=== PATIENT | female | born 1955 | race Caucasian/White ===

== ENCOUNTER 2018-11-06 14:56 | Inpatient (IN) | payer OTHER ==
[~2018-11-06] VITALS: Ht 160 cm; Wt 78.8 kg
[2018-11-06] MEDS ORDERED: normal saline 1000ML IV soln IVB ONE ×2 (15:00→16:35)
[2018-11-06] MEDS ORDERED: OXYB5TAB11 PO (15:16)
[2018-11-06] MEDS ORDERED: ENAL5TAB PO (15:17)
[2018-11-06] MEDS ORDERED: FURO-149 PO (15:19)
[2018-11-06] MEDS ORDERED: ZAR2.5T PO (15:20)
[2018-11-06] MEDS ORDERED: APIX5TAB3 PO (15:22)
[2018-11-06] MEDS ORDERED: OMEP20CA10 PO (15:22)
[2018-11-06 15:24] LABS: BASOPHILS # (AUTO) 0.1 X10'3 (0-0.2); BASOPHILS % (AUTO) 0.8 % (0-1); EOSINOPHILS % (AUTO) 0 % (0-6); HEMATOCRIT 37.6 % (35.0-45.0); HEMOGLOBIN 13.1 g/dl (12.0-16.0); LYMPHOCYTES # (AUTO) 0.8 X10'3 (1.1-4.8); MEAN CORPUSCULAR HEMOGLOBIN 31.3 PG (27.0-31.0); MEAN CORPUSCULAR HGB CONC 34.9 g/dL (33.0-36.5); MEAN CORPUSCULAR VOLUME 89.7 FL (78-98); MEAN PLATELET VOLUME 8.9 FL (7.4-10.4); MONOCYTES # (AUTO) 0.7 X10'3 (0-0.9); MONOCYTES % (AUTO) 8.7 % (2-12); NEUTROPHILS # (AUTO) 6.3 X10'3 (1.8-7.7); NEUTROPHILS % (AUTO) 80.5 % (42-75); PLATELET COUNT 115 X10'3 (140-440); RED BLOOD COUNT 4.19 X10'6 (4.20-5.60); RED CELL DISTRIBUTION WIDTH 13.7 % (11.5-14.5); WHITE BLOOD COUNT 7.8 X10'3 (4.5-11.0)
[2018-11-06] MEDS ORDERED: DIGO125T PO (15:25)
[2018-11-06] MEDS ORDERED: CARSR60C PO (15:26)
[2018-11-06 15:50] LABS: ALANINE AMINOTRANSFERASE 38 U/L (12-78); ALBUMIN 3.1 G/DL (3.4-5.0); ALKALINE PHOSPHATASE 94 IU/L (46-116); ANION GAP 13 (8-16); ASPARTATE AMINO TRANSFERASE 24 U/L (10-37); BILIRUBIN,TOTAL 0.6 MG/DL (0.1-1.0); BLOOD UREA NITROGEN 86 MG/DL (7-18); BUN/CREATININE RATIO 17.3 (6.6-38.0); CALCIUM 9.3 MG/DL (8.5-10.1); CHLORIDE 94 MMOL/L (99-107); CREATININE 4.97 MG/DL (0.40-0.90); GLUCOSE 192 MG/DL (70-104); SODIUM 134 MMOL/L (135-145); TOTAL CARBON DIOXIDE 27.5 MMOL/L (24-32); TOTAL PROTEIN 6.3 G/DL (6.4-8.2); eGFR 9 ML/MIN
[2018-11-06 15:54] LABS: POTASSIUM 2.6 MMOL/L (3.5-5.1)
--- NOTE | 2018-11-06 16:01 | NUR ---
ICE CHIPS/WATER OK PER
[2018-11-06] MEDS ORDERED: DIGOXIN IMMUNE FAB IV ONE (16:20)
[2018-11-06] MEDS ORDERED: NORMAL SALINE IV ONE (16:20)
[2018-11-06] MEDS: potassium 10mEq/100ml NS w/LIDOcaine (10mg/bag) IV SCH ×2 (16:21→17:38)
[2018-11-06] MEDS ORDERED: IBUP-24 PO (16:39)
[2018-11-06] MEDS ORDERED: UMEC62.5 INH (16:39)
--- NOTE | 2018-11-06 16:43 | NUR ---
CALL TO PHARMACY AT THIS TIME TO OBTAIN DIGIFAB (SEE EMAR), PER PHARMACY MEDICATION IS NOT IN STOCK AND CURRENTLY TRYING TO OBTAIN IT. KEELY MARTINEZ MADE AWARE.
[2018-11-06] MEDS ORDERED: sodium phosphate inj. 15 MMOL in dextrose 5%-water 150 ML IV PRN (16:50)
[2018-11-06] MEDS ORDERED: sodium phosphate inj. 30 MMOL in dextrose 5%-water 250 ML IV PRN (16:50)
[2018-11-06] MEDS ORDERED: morphine 2 MG/ML inj. syringe IV PRN (16:50)
[2018-11-06] MEDS ORDERED: magnesium 4gm in 100ml NS 100 ML IV PRN (16:50)
[2018-11-06] MEDS ORDERED: ipratropium/albuterol 3ml nebule NEB PRN (16:50)
[2018-11-06] MEDS ORDERED: magnesium Cl slow-release 64mg tablet PO PRN (16:50)
[2018-11-06] MEDS ORDERED: magnesium 2GM in 50ml NS 50 ML IV PRN (16:50)
[2018-11-06] MEDS ORDERED: ondansetron/PF 4mg/2ml inj IV PRN (16:50)
[2018-11-06] MEDS ORDERED: morphine 4 MG/ML inj SYRINge IV PRN (16:50)
[2018-11-06] MEDS ORDERED: bisacodyl 10mg suppository rectal RC PRN (16:50)
[2018-11-06] MEDS ORDERED: Neutra Phos packet PO PRN (16:50)
[2018-11-06] MEDS ORDERED: acetaminophen 325mg tablet PO PRN (16:50)
--- NOTE | 2018-11-06 17:22 | NUR ---
Incruse Ellipta sent to pharmacy for inpatient use. Rx form filled out, white copy placed in chart.
--- NOTE | 2018-11-06 17:30 | NUR ---
PER PHARMACY MEDICATION NOT AT [facility]. PHARMACY WILL HAVE BIOPHYSICS PROFESSOR GO TO [facility] TO SUPERINTENDENT COLLIERY MEDICATION AND BRING BACK TO [facility].
--- NOTE | 2018-11-06 18:25 | NUR ---
UA order by Dr. Reyna not necessary to collect if pt unable.
[2018-11-06] MEDS: normal saline 1000ml 1,000 ML IV SCH (19:14)
--- NOTE | 2018-11-06 19:20 | NUR ---
DIGIFAB STARTED, CURRENT HR 43. DENIES ANY CP. REPORTS ABD PAIN OF 9 OUT OF 10 THAT IS CHRONIC AND HAS BEEN "GOING ON FOR A MONTH AND A WEEK SO FAR".
--- NOTE | 2018-11-06 19:59 | NUR ---
STRAIGHT CATHED FOR UA,PT TOLERATED WELL. PT'S AT BEDSIDE. HR REMAINS 42 AND SINUS UMESH. DIGIFAB INFUSION COMPLETED. 2 LITER NS BOLUS' COMPLETED. MIVF NS AT 125.
[2018-11-06] MEDS: apixaban 5mg tablet PO SCH (20:06)
[2018-11-06 20:35] LABS: URINE AMPHETAMINE SCREEN NEGATIVE (Neg); URINE BARBITUATE SCREEN NEGATIVE (Neg); URINE BENZODIAZEPINES SCREEN NEGATIVE (Neg); URINE CANNABINOID SCREEN NEGATIVE (Neg); URINE COCAINE SCREEN NEGATIVE (Neg); URINE METHADONE SCREEN NEGATIVE (Neg); URINE OPIATE SCREEN NEGATIVE (Neg); URINE PHENCYCLIDINE SCREEN NEGATIVE (Neg)
--- NOTE | 2018-11-06 23:55 | NUR ---
pt sleeping, no new c/o
[2018-11-07] VITALS (17 sets, daily range): BP systolic 80–123; BP diastolic 37–67
[2018-11-07] MEDS: normal saline 1000ml 1,000 ML IV SCH ×3 (01:13→18:12)
[2018-11-07 03:20] LABS: BASOPHILS % (AUTO) 0.3 % (0-1); EOSINOPHILS % (AUTO) 0.1 % (0-6); HEMATOCRIT 32.5 % (35.0-45.0); HEMOGLOBIN 11.2 g/dl (12.0-16.0); LYMPHOCYTES # (AUTO) 0.7 X10'3 (1.1-4.8); LYMPHOCYTES % (AUTO) 8.2 % (21-51); MEAN CORPUSCULAR HEMOGLOBIN 31.2 PG (27.0-31.0); MEAN CORPUSCULAR HGB CONC 34.3 g/dL (33.0-36.5); MEAN CORPUSCULAR VOLUME 90.8 FL (78-98); MEAN PLATELET VOLUME 8.9 FL (7.4-10.4); MONOCYTES # (AUTO) 0.7 X10'3 (0-0.9); MONOCYTES % (AUTO) 7.9 % (2-12); NEUTROPHILS # (AUTO) 7.4 X10'3 (1.8-7.7); NEUTROPHILS % (AUTO) 83.5 % (42-75); PLATELET COUNT 89 X10'3 (140-440); RED BLOOD COUNT 3.58 X10'6 (4.20-5.60); RED CELL DISTRIBUTION WIDTH 13.2 % (11.5-14.5); WHITE BLOOD COUNT 8.8 X10'3 (4.5-11.0)
[2018-11-07 03:27] LABS: ALBUMIN 2.6 G/DL (3.4-5.0); ANION GAP 11 (8-16); BLOOD UREA NITROGEN 77 MG/DL (7-18); BUN/CREATININE RATIO 20.4 (6.6-38.0); CHLORIDE 102 MMOL/L (99-107); CREATININE 3.77 MG/DL (0.40-0.90); GLUCOSE 139 MG/DL (70-104); MAGNESIUM 2.1 MG/DL (1.5-2.4); PHOSPHORUS 3.3 MG/DL (2.3-4.5); SODIUM 139 MMOL/L (135-145); TOTAL CARBON DIOXIDE 26.4 MMOL/L (24-32); eGFR 12 ML/MIN
[2018-11-07 03:30] LABS: POTASSIUM 2.3 MMOL/L (3.5-5.1)
[2018-11-07] MEDS ORDERED: potassium Cl 20 mEq SR tablet PO STA (03:33)
[2018-11-07] MEDS: potassium Cl 20 mEq SR tablet PO PRN ×5 (03:48→21:18)
[2018-11-07] MEDS: potassium 10mEq/100ml NS w/LIDOcaine (10mg/bag) IV SCH ×2 (03:54→05:07)
--- NOTE | 2018-11-07 04:01 | NUR ---
lab results show k+ of 2.3, dr parry and braxton swan notified, orders for po and iv k+ given
[2018-11-07] MEDS ORDERED: normal saline 1000ML IV soln IVB ONE (04:25)
--- NOTE | 2018-11-07 05:18 | NUR ---
pt has consistently low bp, md informed, pt has no symptoms associated with hypotension, 500 ml ns bolus initiated
--- NOTE | 2018-11-07 05:50 | NUR ---
bolus completed, bp taken manually, pt still exhibiting non-symptomatic hypotension, md informed, traveling clerk called
--- NOTE | 2018-11-07 05:55 | NUR ---
director business systems contacted, orders to keep map above [address], pt to be transferred to icu after shift change
--- NOTE | 2018-11-07 07:55 | NUR ---
07- Received report from Leila Lockhart- Pt arrived. BP on R 71/46 L 80/40 HR ranges from 38-45. Currently in afib. Pt states she was started on eliquis 7 weeks ago for afib. She has been having dizziness, weakness, throwing up meds, and diarrhea
[2018-11-07] MEDS: apixaban 5mg tablet PO SCH ×2 (07:58→21:18)
[2018-11-07] MEDS: pantoprazole 40mg Tablet.DR PO SCH (07:59)
[2018-11-07] MEDS ORDERED: non-formulary drug (Umeclidinium Bromide (Incruse Ellipta) 1 PUFF) INH SCH (08:00)
[2018-11-07] MEDS: INCRUSE ELLIPTA 62.5 MCG IH SCH (08:00)
[2018-11-07] MEDS: DOBUTamine-DoBUTrex 500mg/D5W 250 ML IV SCH (09:32)
--- NOTE | 2018-11-07 10:02 | NUR ---
0845 - Dr Contreras here. To start dobutamine at 5mcg (no titrate), Ok to eat if able. Nrs added a dig level to am lab draw this am. Dig level at 0300 4.5. Will relay during rounds. Continue to monitor. 929- Dobutamine started. HR up to 60.
--- NOTE | 2018-11-07 12:54 | NUR ---
1245- BP call to Dr Kowalski, start 1 lt bolus, EF 80%, once PICC line placed may change dobutamine to dopamine. Start at 5, may go up to 10 if HR is stable.
[2018-11-07] MEDS ORDERED: normal saline 1000ml 1,000 ML IV ONE (12:55)
[2018-11-07] MEDS ORDERED: DOPamine 400mg/D5W 250ml 250 ML IV SCH (14:45)
--- NOTE | 2018-11-07 14:56 | NUR ---
1430 PICC line placed upper right arm, Dopamine to start at 5, decrease dobutamine to 3. Patient had a stool at 1500, obvious sign of blood in stool, stool sample sent, will inform . BP currently 90/36
[2018-11-07 15:18] LABS: OCCULT BLOOD STOOL POSITIVE (Neg)
--- NOTE | 2018-11-07 15:53 | NUR ---
Malnutrition consult d/t patient report of 2-13 lb weight loss recently and eating poorly for more than one week. Patient and her SO seen at bedside. Patient reports that she has lost 13 lbs of weight d/t fluids recently. She reports eating poorly due nausea and vomiting, however she reports no n/v today. She was attempting to eat some of her lunch tray at the time of visit however she was having abdominal pain and had bloody stools, RN aware. Patient declines texture modification although she has some missing teeth. Obtained food preferences. SO states that patient drank oral nutrition supplements at home, offered them to patient while she is here and she declined for now. RD contact information was given. No malnutrition at this time. Addendum: 11/07/18 at [address] Amended: Links added.
--- NOTE | 2018-11-07 18:48 | NUR ---
Problems reprioritized. Patient report given, questions answered & plan of care reviewed with
[2018-11-07 20:34] LABS: HEMATOCRIT 28.9 % (35.0-45.0); HEMOGLOBIN 10.1 g/dl (12.0-16.0); MEAN CORPUSCULAR HEMOGLOBIN 31.6 PG (27.0-31.0); MEAN CORPUSCULAR HGB CONC 34.8 g/dL (33.0-36.5); MEAN CORPUSCULAR VOLUME 90.6 FL (78-98); MEAN PLATELET VOLUME 8.8 FL (7.4-10.4); PLATELET COUNT 89 X10'3 (140-440); RED BLOOD COUNT 3.19 X10'6 (4.20-5.60); RED CELL DISTRIBUTION WIDTH 13.4 % (11.5-14.5); WHITE BLOOD COUNT 6.8 X10'3 (4.5-11.0)
[2018-11-07 20:36] LABS: INR 1.1 INR; PARTIAL THROMBOPLASTIN TIME 31 SECONDS (22-32)
[2018-11-08] VITALS (23 sets, daily range): BP systolic 92–133; BP diastolic 41–72
[2018-11-08] MEDS: potassium Cl 20 mEq SR tablet PO PRN (00:50)
[2018-11-08 03:27] LABS: BASOPHILS % (AUTO) 0.7 % (0-1); EOSINOPHILS % (AUTO) 0.4 % (0-6); HEMATOCRIT 28.2 % (35.0-45.0); HEMOGLOBIN 9.6 g/dl (12.0-16.0); LYMPHOCYTES # (AUTO) 0.6 X10'3 (1.1-4.8); LYMPHOCYTES % (AUTO) 13.1 % (21-51); MEAN CORPUSCULAR HEMOGLOBIN 31.1 PG (27.0-31.0); MEAN CORPUSCULAR HGB CONC 34.2 g/dL (33.0-36.5); MEAN CORPUSCULAR VOLUME 90.9 FL (78-98); MEAN PLATELET VOLUME 8.4 FL (7.4-10.4); MONOCYTES # (AUTO) 0.6 X10'3 (0-0.9); NEUTROPHILS # (AUTO) 3.5 X10'3 (1.8-7.7); NEUTROPHILS % (AUTO) 73.8 % (42-75); PLATELET COUNT 97 X10'3 (140-440); RED CELL DISTRIBUTION WIDTH 13.3 % (11.5-14.5); WHITE BLOOD COUNT 4.8 X10'3 (4.5-11.0)
[2018-11-08 03:39] LABS: ALBUMIN 2.2 G/DL (3.4-5.0); ANION GAP 10 (8-16); BLOOD UREA NITROGEN 57 MG/DL (7-18); BUN/CREATININE RATIO 29.7 (6.6-38.0); CALCIUM 7.3 MG/DL (8.5-10.1); CHLORIDE 109 MMOL/L (99-107); CREATININE 1.92 MG/DL (0.40-0.90); GLUCOSE 121 MG/DL (70-104); MAGNESIUM 1.5 MG/DL (1.5-2.4); PHOSPHORUS 1.5 MG/DL (2.3-4.5); POTASSIUM 3.7 MMOL/L (3.5-5.1); SODIUM 141 MMOL/L (135-145); TOTAL CARBON DIOXIDE 22.1 MMOL/L (24-32); eGFR 26 ML/MIN
[2018-11-08] MEDS: normal saline 1000ml 1,000 ML IV SCH ×2 (04:43→14:12)
[2018-11-08] MEDS: apixaban 5mg tablet PO SCH ×2 (08:30→20:36)
[2018-11-08] MEDS: pantoprazole 40mg Tablet.DR PO SCH (08:30)
[2018-11-08] MEDS: INCRUSE ELLIPTA 62.5 MCG IH SCH (11:44)
[2018-11-08] MEDS ORDERED: bisacodyl 10mg suppository rectal RC PRN (16:50)
[2018-11-08] MEDS: DOBUTamine-DoBUTrex 500mg/D5W 250 ML IV SCH (16:57)
--- NOTE | 2018-11-08 18:10 | NUR ---
Patient tolerated being off of the Dopamine/Dobutamine throughout the day; however, her HR was noted to drop as low as 45bpm; blood pressure stable. No new episodes of "bloody stool," but more of a soft brown color. Dr. Contreras aware that if bloody stool restarts/picks up, that an upper GI scan might be necessary.
--- NOTE | 2018-11-08 18:40 | NUR ---
Problems reprioritized. Patient report given, questions answered & plan of care reviewed with Ayanna RIGGS.
--- NOTE | 2018-11-08 19:15 | NUR ---
Patient in room ICU 2039. I have received report from Cee RIGGS and had the opportunity to ask questions and assume patient care.
[2018-11-09] VITALS (16 sets, daily range): BP systolic 96–141; BP diastolic 51–76
--- NOTE | 2018-11-09 01:30 | NUR ---
HR decreased to 50s and high 40s/min. Pt sleeping. RADIOACTIVITY TECHNICIAN notified of HR change. VS reviewed w/RADIOACTIVITY TECHNICIAN. No new orders given at this time. BP: 113/59.
[2018-11-09 05:54] LABS: ALBUMIN 2.1 G/DL (3.4-5.0); ANION GAP 7 (8-16); BLOOD UREA NITROGEN 38 MG/DL (7-18); BUN/CREATININE RATIO 27.3 (6.6-38.0); CALCIUM 8.4 MG/DL (8.5-10.1); CHLORIDE 107 MMOL/L (99-107); CREATININE 1.39 MG/DL (0.40-0.90); GLUCOSE 95 MG/DL (70-104); MAGNESIUM 1.3 MG/DL (1.5-2.4); PHOSPHORUS 1.5 MG/DL (2.3-4.5); POTASSIUM 3.6 MMOL/L (3.5-5.1); SODIUM 137 MMOL/L (135-145); TOTAL CARBON DIOXIDE 23.5 MMOL/L (24-32); eGFR 38 ML/MIN
[2018-11-09 06:00] LABS: BASOPHILS # (AUTO) 0.1 X10'3 (0-0.2); EOSINOPHILS # (AUTO) 0.1 X10'3 (0-0.9); EOSINOPHILS % (AUTO) 1.4 % (0-6); HEMATOCRIT 29.2 % (35.0-45.0); HEMOGLOBIN 10.1 g/dl (12.0-16.0); LYMPHOCYTES # (AUTO) 1.1 X10'3 (1.1-4.8); LYMPHOCYTES % (AUTO) 20.9 % (21-51); MEAN CORPUSCULAR HEMOGLOBIN 31.3 PG (27.0-31.0); MEAN CORPUSCULAR HGB CONC 34.6 g/dL (33.0-36.5); MEAN CORPUSCULAR VOLUME 90.5 FL (78-98); MEAN PLATELET VOLUME 8.8 FL (7.4-10.4); MONOCYTES # (AUTO) 0.5 X10'3 (0-0.9); MONOCYTES % (AUTO) 9.7 % (2-12); NEUTROPHILS # (AUTO) 3.4 X10'3 (1.8-7.7); PLATELET COUNT 125 X10'3 (140-440); RED BLOOD COUNT 3.23 X10'6 (4.20-5.60); RED CELL DISTRIBUTION WIDTH 13.2 % (11.5-14.5); WHITE BLOOD COUNT 5.1 X10'3 (4.5-11.0)
--- NOTE | 2018-11-09 06:52 | NUR ---
Problems reprioritized. Patient report given, questions answered & plan of care reviewed with Anjum RIGGS.
[2018-11-09] MEDS: apixaban 5mg tablet PO SCH ×2 (07:20→20:25)
[2018-11-09] MEDS: pantoprazole 40mg Tablet.DR PO SCH (07:20)
[2018-11-09] MEDS: INCRUSE ELLIPTA 62.5 MCG IH SCH (07:21)
--- NOTE | 2018-11-09 17:35 | NUR ---
Patient in room PCU 3021. I have received report from Anjum RIGGS from ICU and had the opportunity to ask questions and assume patient care. pt transferred from ICU
--- NOTE | 2018-11-09 17:44 | NUR ---
Pt. taken to [facility] 3021. All belongings taken with her and placed in room. Nurse in room when I left.
--- NOTE | 2018-11-09 18:30 | NUR ---
Patient in room PCU 3021. I have received report from KEELY Hannah and had the opportunity to ask questions and assume patient care.
--- NOTE | 2018-11-09 18:42 | NUR ---
Problems reprioritized. Patient report given, questions answered & plan of care reviewed with Sharonda RN, pt greeted at bedside. .
--- NOTE | 2018-11-09 19:20 | NUR ---
Problems reprioritized. Patient report given, questions answered & plan of care reviewed with KEELY Fregoso.
--- NOTE | 2018-11-09 19:57 | NUR ---
Patient in room PCU 3021. I have received report from Sharonda RIGGS and had the opportunity to ask questions and assume patient care.
[2018-11-09] MEDS: acetaminophen 325mg tablet PO PRN (20:27)
[2018-11-10 02:00] VITALS: BP 144/73
[2018-11-10 05:29] LABS: BASOPHILS % (AUTO) 1.2 % (0-1); EOSINOPHILS # (AUTO) 0.1 X10'3 (0-0.9); EOSINOPHILS % (AUTO) 1.3 % (0-6); HEMATOCRIT 28.2 % (35.0-45.0); HEMOGLOBIN 9.6 g/dl (12.0-16.0); LYMPHOCYTES % (AUTO) 24.9 % (21-51); MEAN CORPUSCULAR HEMOGLOBIN 30.9 PG (27.0-31.0); MEAN CORPUSCULAR HGB CONC 34.1 g/dL (33.0-36.5); MEAN CORPUSCULAR VOLUME 90.4 FL (78-98); MEAN PLATELET VOLUME 8.2 FL (7.4-10.4); MONOCYTES # (AUTO) 0.5 X10'3 (0-0.9); MONOCYTES % (AUTO) 11.8 % (2-12); NEUTROPHILS # (AUTO) 2.5 X10'3 (1.8-7.7); NEUTROPHILS % (AUTO) 60.8 % (42-75); PLATELET COUNT 151 X10'3 (140-440); RED BLOOD COUNT 3.12 X10'6 (4.20-5.60); RED CELL DISTRIBUTION WIDTH 13.3 % (11.5-14.5); WHITE BLOOD COUNT 4.1 X10'3 (4.5-11.0)
[2018-11-10 05:46] LABS: ALBUMIN 2.1 G/DL (3.4-5.0); ANION GAP 6 (8-16); BLOOD UREA NITROGEN 24 MG/DL (7-18); BUN/CREATININE RATIO 20.2 (6.6-38.0); CALCIUM 8.7 MG/DL (8.5-10.1); CHLORIDE 107 MMOL/L (99-107); CREATININE 1.19 MG/DL (0.40-0.90); GLUCOSE 103 MG/DL (70-104); MAGNESIUM 1.3 MG/DL (1.5-2.4); POTASSIUM 3.4 MMOL/L (3.5-5.1); SODIUM 140 MMOL/L (135-145); TOTAL CARBON DIOXIDE 26.7 MMOL/L (24-32); eGFR 46 ML/MIN
[2018-11-10] MEDS: acetaminophen 325mg tablet PO PRN (05:52)
[2018-11-10 06:00] VITALS: BP 148/61
--- NOTE | 2018-11-10 07:04 | NUR ---
Patient in room PCU 3021. I have received report from KEELY HANSEN and had the opportunity to ask questions and assume patient care.
--- NOTE | 2018-11-10 07:14 | NUR ---
Problems reprioritized. Patient report given, questions answered & plan of care reviewed with Joni RN.
[2018-11-10] MEDS: pantoprazole 40mg Tablet.DR PO SCH (07:45)
[2018-11-10] MEDS: potassium Cl 20 mEq SR tablet PO PRN ×3 (07:46→16:26)
[2018-11-10] MEDS: apixaban 5mg tablet PO SCH ×2 (07:46→19:59)
[2018-11-10] MEDS ORDERED: magnesium 2GM in 50ml NS 50 ML IV ONE (09:20)
[2018-11-10 11:00] VITALS: BP 133/83
[2018-11-10 15:00] VITALS: BP 145/70
--- NOTE | 2018-11-10 15:35 | NUR ---
PAGED RT:PLEASE CALL KATIE [id number] R/T 4021. TY.
[2018-11-10] MEDS: INCRUSE ELLIPTA 62.5 MCG IH SCH (16:06)
--- NOTE | 2018-11-10 18:25 | NUR ---
Problems reprioritized. Patient report given, questions answered & plan of care reviewed with rosio adam.
[2018-11-10 18:30] VITALS: BP 146/69
--- NOTE | 2018-11-10 18:45 | NUR ---
Patient in room U 3021. I have received report from KATIE RIGGS and had the opportunity to ask questions and assume patient care. Addendum: 11/10/18 at 1846 by Lena Mendez RN Amended: Links added.
--- NOTE | 2018-11-10 19:30 | NUR ---
took hs meds no complaints.
--- NOTE | 2018-11-10 21:00 | NUR ---
resting no s&S of distress.
[2018-11-10 21:20] LABS: MAGNESIUM 1.4 MG/DL (1.5-2.4); POTASSIUM 3.9 MMOL/L (3.5-5.1)
[2018-11-10 23:00] VITALS: BP 143/73
--- NOTE | 2018-11-10 23:00 | NUR ---
a/o back to bed from brp tolerated well.
--- NOTE | 2018-11-11 01:00 | NUR ---
pt resting no changes
[2018-11-11] MEDS ORDERED: potassium Cl 40MEQ/NS 500ml 500 ML IV PRN ×2 (01:45)
[2018-11-11] MEDS ORDERED: potassium Cl 20 mEq SR tablet PO PRN (01:45)
--- NOTE | 2018-11-11 02:40 | NUR ---
pt awoke vital done and magnesium given, received orders to restart replacement protocol.
[2018-11-11] MEDS: magnesium oxide 400mg tablet PO SCH ×2 (02:45→07:52)
[2018-11-11 02:49] VITALS: BP 139/66
--- NOTE | 2018-11-11 04:35 | NUR ---
resting eyes closed no changes.
--- NOTE | 2018-11-11 05:00 | NUR ---
pt awoke briefly for lab draw from the picc line no s&s of distress.
[2018-11-11 06:00] VITALS: BP 134/86
[2018-11-11 06:02] LABS: BASOPHILS % (AUTO) 1.1 % (0-1); EOSINOPHILS # (AUTO) 0.1 X10'3 (0-0.9); EOSINOPHILS % (AUTO) 1.7 % (0-6); HEMATOCRIT 27.5 % (35.0-45.0); HEMOGLOBIN 9.3 g/dl (12.0-16.0); LYMPHOCYTES # (AUTO) 0.9 X10'3 (1.1-4.8); LYMPHOCYTES % (AUTO) 28.1 % (21-51); MEAN CORPUSCULAR HEMOGLOBIN 30.8 PG (27.0-31.0); MEAN CORPUSCULAR HGB CONC 33.8 g/dL (33.0-36.5); MEAN PLATELET VOLUME 7.9 FL (7.4-10.4); MONOCYTES # (AUTO) 0.4 X10'3 (0-0.9); MONOCYTES % (AUTO) 12.9 % (2-12); NEUTROPHILS # (AUTO) 1.9 X10'3 (1.8-7.7); NEUTROPHILS % (AUTO) 56.2 % (42-75); PLATELET COUNT 168 X10'3 (140-440); RED BLOOD COUNT 3.02 X10'6 (4.20-5.60); RED CELL DISTRIBUTION WIDTH 13.3 % (11.5-14.5); WHITE BLOOD COUNT 3.3 X10'3 (4.5-11.0)
--- NOTE | 2018-11-11 06:15 | NUR ---
Problems reprioritized. Patient report given, questions answered & plan of care reviewed with Joni Quinteros. Addendum: 11/11/18 at 0616 by Lena Mendez RN Amended: Links added.
[2018-11-11 06:19] LABS: ALBUMIN 2.1 G/DL (3.4-5.0); ANION GAP 8 (8-16); BLOOD UREA NITROGEN 12 MG/DL (7-18); BUN/CREATININE RATIO 11.8 (6.6-38.0); CALCIUM 8.6 MG/DL (8.5-10.1); CHLORIDE 109 MMOL/L (99-107); CREATININE 1.02 MG/DL (0.40-0.90); GLUCOSE 113 MG/DL (70-104); MAGNESIUM 1.4 MG/DL (1.5-2.4); PHOSPHORUS 2.1 MG/DL (2.3-4.5); POTASSIUM 3.6 MMOL/L (3.5-5.1); SODIUM 143 MMOL/L (135-145); TOTAL CARBON DIOXIDE 25.6 MMOL/L (24-32); eGFR 54 ML/MIN
--- NOTE | 2018-11-11 06:28 | NUR ---
Patient in room PCU 3021. I have received report from KEELY REEVES and had the opportunity to ask questions and assume patient care.
--- NOTE | 2018-11-11 06:46 | NUR ---
Patient in room PCU 3021. I have received report from KEELY REEVES and had the opportunity to ask questions and assume patient care.
[2018-11-11] MEDS: pantoprazole 40mg Tablet.DR PO SCH (07:52)
[2018-11-11] MEDS: apixaban 5mg tablet PO SCH (07:52)
[2018-11-11] MEDS ORDERED: magnesium oxide 400mg tablet PO SCH (08:00)
[2018-11-11] MEDS: INCRUSE ELLIPTA 62.5 MCG IH SCH (09:21)
[2018-11-11 11:00] VITALS: BP 138/78
[2018-11-11 15:00] VITALS: BP 153/76
== END 2018-11-11 16:36 | disposition home or self-care (01) | DRG 308 ==
LOC: ER 14:57 → ICU 2S 11-07 07:19 → CMPBEDREQ 11-09 15:14 → PCU 3S 11-09 17:30
PROVIDERS: ADMIT Internal Medicine Critical Care Medicine; ATTEND Internal Medicine Critical Care Medicine
PROC: 02HV33Z Insertion of Infusion Device into Superior Vena Cava, Percutaneous Approach (ICD-10-PCS; principal; 2018-11-07)
DX: R00.1 Bradycardia, unspecified (principal); N17.0 Acute kidney failure with tubular necrosis; I50.30 Unspecified diastolic (congestive) heart failure; T46.0X5A Adverse effect of cardiac-stimulant glycosides and drugs of similar action, initial encounter; E87.6 Hypokalemia; K22.2 Esophageal obstruction; I44.7 Left bundle-branch block, unspecified; I48.91 Unspecified atrial fibrillation; E83.42 Hypomagnesemia; F17.200 Nicotine dependence, unspecified, uncomplicated; G47.33 Obstructive sleep apnea (adult) (pediatric); I11.0 Hypertensive heart disease with heart failure; I08.1 Rheumatic disorders of both mitral and tricuspid valves; Z90.710 Acquired absence of both cervix and uterus; Z79.899 Other long term (current) drug therapy; Z88.5 Allergy status to narcotic agent; Y92.89 Other specified places as the place of occurrence of the external cause; Z71.6 Tobacco abuse counseling
CPT/HCPCS: 36415; 36569; 71045; 76937; 80053; 80069; 80162; 80305; 82272; 82948; 83735; 83880; 84132; 84484; 85025; 85027; 85610; 85730; 86870; 86885; 86900; 86901; 86902; 86905; 87070; 93005; 93306; 94640; 94760; 96365; 96366; 96368; 96375; 97116; 97161; 97530; 99285; G0378; J1162; J1250; J1265; J2405; J3475; J3480; J7030